=== PATIENT | male | born 1980 | race Caucasian/White ===

== ENCOUNTER → 2024-10-18 | Outpatient (CLI) | payer SELFPAY ==
--- NOTE | 2024-10-18 15:33 | MRI_ITS ---
HISTORY: OPTIC NEURITIS RT EYE,BLURRY VISION, HEADACHE, EVAL FOR MS. TECHNIQUE: Multiplanar and multisequence MR images of the brain were obtained before and after the intravenous administration of 22 mL vijay scan. 403 images. COMPARISON: None. FINDINGS: BRAIN PARENCHYMA: Mild foci of increased T2 FLAIR signal in the bilateral cerebral white matter, largest in the left frontal and right occipital periventricular regions with mild enhancement of the right occipital periventricular lesion. No abnormal focus of restricted diffusion. No acute intracranial hemorrhage identified. CSF SPACES: Cerebral ventricles, cortical sulci, and other extra-axial CSF spaces within normal limits in size for age. No significant midline shift or other mass effect.No extra-axial fluid collection. VASCULAR SYSTEM: Major intracranial flow voids are maintained. PARANASAL SINUSES AND MASTOID AIR CELLS: No significant air fluid levels. ORBITS: Increased T2 signal and mild enhancement of the intraorbital portion of the right optic nerve. MRI/Brain W/WO Contrast IMPRESSION: Mild foci of increased T2 FLAIR signal in the bilateral cerebral white matter with mild enhancement of the right occipital periventricular lesion, concerning for demyelinating disease such as multiple sclerosis with active plaque. Mild right optic nerve enhancement, compatible with the history of optic neuritis. Electronically Signed: Carline Varela MD at 9:50 EST ,
== END | disposition home or self-care (01) ==
LOC: MRI 15:28
PROVIDERS: Referring Provider Ophthalmology; Visit Provider Ophthalmology
DX: H46.9 Unspecified optic neuritis (principal)
CPT/HCPCS: 70553; A9575